=== PATIENT | male | born 1985 | race Two or more races ===

== ENCOUNTER → 2017-10-10 | Day surgery (SDC) | payer BC ==
[~2017-10-10] VITALS: Ht 200.7 cm; Wt 114.0 kg
[~2017-10-10] MED LIST: ACETAMINOPHEN 1000 MG/100 ML 100 ML IV ONE; BUPIVACAINE LIPOSOME PF 1.3% 20 ML VIAL ONE; BUPIVACAINE/EPINEPHRINE 0.5% PF 30 ML VIAL ONE; CHLORHEXIDINE GLUCONATE 2 % 1 PACK (2 CLOTHS) TOPICAL PRN; KETOROLAC TROMETHAMINE 30 MG/ML (IVP) VIAL ONE; LACTATED RINGER'S 1000 ML IV PRN; METOPROLOL TARTRATE 25 MG TAB PO PRN; MIDAZOLAM HCL 2 MG/2 ML VIAL ONE; POVIDONE IODINE 5% (ANTISEPSIS KIT) 4 APPLICATIONS EACH NARE PRN; ceFAZolin 2 GM PREMIX 50 ML IV SCH
--- NOTE | 2017-10-10 09:48 | PD.OP ---
cc: Randall Mendoza MD Operative Report Date of Surgery: Oct 10, 2017 Preoperative Diagnosis: Left inguinal hernia Postoperative Diagnosis: Left inguinal hernia Procedure: Repair of left inguinal hernia with pro-hr consultant mesh Anesthesia: Local/MAC Surgeon: Randall Mendoza Software Release Engineer(s): Stef Jean MS 3 Operation and Findings: Operative findings: The patient was found to have a relatively large indirect inguinal hernia with no evidence of incarcerated viscera. The sac was somewhat thick-walled but was limited in its length. The inguinal floor was grossly attenuated but no other hernias were definitely identified. Operative procedure: Patient was brought to the operating room and after satisfactory sedation by anesthesia, the left groin was prepped and draped in usual sterile fashion. 1.3% Exparel was used to infiltrate the skin for local anesthesia. A transverse left inguinal incision was then made and carried down sharply through the subcutaneous tissue, with a cautery being used for hemostasis. Incision was deepened to the external oblique fascia which was opened in the direction of its fibers down to and through the external ring. The underside of the fascia was cleaned and the spermatic cord isolated with a Goldfield drain. The indirect hernia sac was identified and dissected free from the cord structures. It was partially opened and then closed with a 3-0 Vicryl suture. It was reduced within the properitoneal space without problem. The inguinal floor was then reapproximated by bringing the internal oblique muscle down to the shelving edge of the inguinal ligament with interrupted 0 Vicryl sutures. Once the inguinal floor and internal ring were re-created in this fashion a piece of pro-hr consultant mesh was cut to the appropriate shape and secured anterior to the repair using his posterior Vicryl hooks. Once the mesh was in proper placement a single suture of 0 Prolene was brought between the mesh and the pubis to secure it in that location. The mesh was repair was checked and found to be intact. Hemostasis was checked for and found to be satisfactory. The external oblique fascia was then closed with a running 3-0 Vicryl suture. The subcutaneous tissue was closed with interrupted 3-0 Vicryl sutures and skin closed with interrupted 4-0 PDS subcuticular sutures. Steri-Strips were applied the patient was then awakened and taken from the operating room, in satisfactory condition, having tolerated the procedure without problem. Estimated blood loss was less than 10 mL's. The instrument, sponge, needle counts were reported as being correct 2 at the end of the procedure. Randall Mendoza MD Oct 10, 2017 09:47
[2017-10-10 10:02] VITALS: BP 125/71
[2017-10-10 10:25] VITALS: PULSE 76; RESP 16; TEMP 98; O2SAT 97
== END | disposition home or self-care (01) ==
LOC: PHSDC 06:03
PROVIDERS: ATTEND Surgery
DX: K40.90 Unilateral inguinal hernia, without obstruction or gangrene, not specified as recurrent (principal)
CPT/HCPCS: 00830; 49505; C9290; J0131; J0690; J1885; J2250; J3010; J7120; C1781